=== PATIENT | female | born 1990 | race Caucasian/White ===

== ENCOUNTER 2017-03-15 07:55 | Observation (INO) | payer BC, MEDICAID, OTHER ==
[2017-03-15 07:56] VITALS: BMI 36.6
--- NOTE | 2017-03-15 08:30 | ED PDOC ---
Arrival/HPI - General Chief Complaint: Abdominal Pain Time Seen by Provider: 03/15/17 08:29 Historian: Patient - History of Present Illness Narrative History of Present Illness (Text): 03/15/17 08:30 A 27 year old female presents to the emergency department complaining of upper abdominal pain since 1 am this morning. Patient notes nausea and multiple episodes of non-bilious non-bloody vomiting. Patient denies any relieving or exacerbating factors. Patient denies any fever, chills, diarrhea, chest pain, shortness of breath or any other complaints. PMD: Dr. Frazier Time/Duration: Other (1 am today) Symptom Course: Unchanged Quality: Other Context: Home Past Medical History - Provider Review Nursing Documentation Reviewed: Yes - Infectious Disease Hx of Infectious Diseases: None - Tetanus Immunization Tetanus Immunization: Unknown - Reproductive Menopause: No - Past Medical History Past Medical History: No Previous - Cardiac Hx Cardiac Disorders: No - Pulmonary Hx Asthma: Yes Hx Pneumonia: Yes - Neurological Hx Neurological Disorder: No - HEENT Hx HEENT Disorder: No - Renal Hx Renal Disorder: No - Endocrine/Metabolic Hx Endocrine Disorders: No - Hematological/Oncological Hx Blood Disorders: No - Integumentary Hx Dermatological Disorder: No - Musculoskeletal/Rheumatological Hx Musculoskeletal Disorders: Yes (HAND INJURY,FINGER LACERATION) Hx Falls: No Hx Herniated Disk: Yes - Gastrointestinal Hx Gastrointestinal Disorders: No - Genitourinary/Gynecological Hx Genitourinary Disorders: No - Psychiatric Hx Depression: No Hx Substance Use: No - Past Surgical History Past Surgical History: No Previous - Anesthesia Hx Anesthesia: No - Suicidal Assessment Feels Threatened In Home Enviroment: No Family/Social History - Physician Review Nursing Documentation Reviewed: Yes Family/Social History: No Known Family HX Smoking Status: Current Some Days Smoker Hx Alcohol Use: Yes (SOCIALLY) Hx Substance Use: No Hx Substance Use Treatment: No Allergies/Home Meds Allergies/Adverse Reactions: Allergies apple Allergy (Verified 03/15/17 08:10) RASH Review of Systems - Physician Review All systems were reviewed & negative as marked: Yes - Review of Systems Constitutional: absent: Fevers, Night Sweats Respiratory: absent: SOB Cardiovascular: absent: Chest Pain Gastrointestinal: Abdominal Pain, Nausea, Vomiting. absent: Diarrhea Physical Exam - Physical Exam Narrative Physical Exam (Text): Constitutional: No acute distress. Head: Normocephalic. Atraumatic. Eyes: PERRL. ENT: Moist mucous membranes. Neck: Supple. Cardiovascular: Regular rate. Chest: No tenderness. Respiratory: Clear to auscultation bilaterally. GI: Soft. Nondistended. Epigastric tenderness. No rebound or guarding. Back: No CVA tenderness. Musculoskeletal: No tenderness or swelling of extremities. Skin: No rash. Neurologic: Alert, no focal deficit. Vital Signs Reviewed: Yes Vital Signs Temp Pulse Resp BP Pulse Ox 03/15/17 15:41 98.2 F 77 18 117/70 99 03/15/17 15:29 98.2 F 77 18 119/64 99 03/15/17 14:00 104 H 17 86/58 L 96 03/15/17 12:00 73 17 125/86 100 03/15/17 10:00 79 17 123/86 98 03/15/17 08:13 97.7 F 72 16 129/75 99 03/15/17 08:07 97.7 F 72 16 129/75 99 Temperature: Afebrile Blood Pressure: Normal Pulse: Regular Respiratory Rate: Normal Appearance: Positive for: Well-Appearing, Non-Toxic, Comfortable Pain Distress: None Mental Status: Positive for: Alert and Oriented X 3 Medical Decision Making ED Course and Treatment: 03/15/17 08:30 Impression: A 27 year old female with upper abdominal pain. Patient notes nausea and non- bilious non-bloody vomiting. Plan: -- Abdomen ultrasound -- Labs -- Urinalysis -- Maalox, Pepcid, Zofran and IV fluids -- Reassess and disposition - Lab Interpretations I have reviewed the lab results: Yes - Medication Orders Current Medication Orders: Discontinued Medications Al Hydrox/Mg Hydrox/Simethicone (Maalox Plus 30 Ml) 30 ml PO STAT STA Stop: 03/15/17 08:36 Last Admin: 03/15/17 08:48 Dose: 30 ml Famotidine (Pepcid) 20 mg IVP STAT STA Stop: 03/15/17 08:36 Last Admin: 03/15/17 08:48 Dose: 20 mg Famotidine (Pepcid) 20 mg IVP STAT STA Stop: 03/15/17 14:53 Last Admin: 03/15/17 15:11 Dose: 20 mg Sodium Chloride (Sodium Chloride 0.9%) 1,000 mls @ 999 mls/hr IV .Q1H1M STA Stop: 03/15/17 09:35 Last Admin: 03/15/17 08:48 Dose: 999 mls/hr Ondansetron HCl (Zofran Inj) 8 mg IVP STAT STA Stop: 03/15/17 08:36 Last Admin: 03/15/17 08:48 Dose: 8 mg Oxycodone/Acetaminophen (Percocet 5/325 Mg Tab) 1 tab PO STAT STA Stop: 03/15/17 10:59 Last Admin: 03/15/17 11:18 Dose: 1 tab Re-Assess: [facility] Pain Assessment Document 03/15/17 12:18 ALA (Rec: 03/15/17 14:11 ALA [id number]) Pain Reassessment Is this a pain reassessment? Yes ED OBSERVATION Discharge: Yes Date of observation admission: 03/15/17 Time of observation admission: 08:35 - Observation admission statement Patient is being placed in observation because:: Abdominal pain - Goals of Observation Goals of observation are:: Monitor and treat patients symptom - Progress Note Progress Note: 03/15/17 08:35 Patient with abdominal pain and non-bilious non-bloody vomiting. 03/15/17 10:35 Patient resting in no acute distress. No new complaints. 03/15/17 11:15 Abdominal ultrasound read and interpreted by me, which shows gallstones, no cholecystitis. Waiting for official read. Will administer Percocet for pain management, I discussed the risk of addiction. Recommended IV ibuprofen and percocet as needed. 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 Drug registry reviewed, patient only had one prescription for Vicodin 2 months ago from dentist. Report Date : 03/15/2017 11:53:18 Procedure: Abdomen Ultrasound Dictator : Rajat Kim MD IMPRESSION: Multiple gallstones. Dilated common bile duct 03/15/17 13:30 Patient sleeping comfortably, in no acute distress. 03/15/17 14:34 Patient appears well, ambulating in the emergency room without difficulty. 03/15/17 16:15 Patient with dilated common bile duct, normal liver enzymes and bilirubin. I advised the patient stay in the hospital for further testing of bile duct, but she decided to leave against medical advice and states she will f/u with Dr. Frazier tomorrow. - Scribe Statement The provider has reviewed the documentation as recorded by the Seymour Beebe Provider Nereydaibe Attestation: All medical record entries made by the Scribe were at my direction and personally dictated by me. I have reviewed the chart and agree that the record accurately reflects my personal performance of the history, physical exam, medical decision making, and the department course for this patient. I have also personally directed, reviewed, and agree with the discharge instructions and disposition. Disposition/Present on Arrival - Present on Arrival Any Indicators Present on Arrival: No History of DVT/PE: No History of Uncontrolled Diabetes: No Urinary Catheter: No History of Decub. Ulcer: No History Surgical Site Infection Following: None - Disposition Have Diagnosis and Disposition been Completed?: Yes Diagnosis: Gallstones, Common bile duct dilatation Disposition: AGAINST MEDICAL ADVICE Disposition Time: 08:35 Patient Plan: Discharge Patient Problems: Current Active Problems Problem Status Onset Common bile duct dilatation Acute Gallstones Acute Condition: FAIR Against Medical Advice - AMA Patient Left Against Medical Advice: The patient declines admission to the hospital and wishes to leave the Emergency Department. This action is against my medical advice. This decision was made with informed refusal. The patient was told that admission to the hospital is necessary. Explanation of the reasons why were discussed. The risks of leaving were explained to the patient and include, but are not limited to, worsening of known or currently unknown conditions, permanent disability and from undiagnosed or untreated conditions. The patient has the capacity to make this informed decision and understands my explanation of the current medical problem and risks of leaving. The patient voluntarily accepts these risks and signed an AMA form documenting our conversation. The patient was given the opportunity to ask questions and reconsider. The patient was encouraged to return to the Emergency Department at any time for further care.
[2017-03-15] MEDS ORDERED: Alum-Mag Hydrox-Simethicone Susp (30 mL) PO STA (08:35)
[2017-03-15] MEDS ORDERED: Sodium Chloride 0.9% 1,000 ML IV STA (08:35)
[2017-03-15 09:24] LABS: HEMOGLOBIN 11.4 gm/dL (12.0-16.0); LYMPH # 0.7 (1.2-3.4); LYMPH % 5.3 % (22.0-35.0); MEAN CELL VOLUME 81.6 fL (80.0-105.0); MEAN CORPUSCULAR HEMOGLOBIN 26.3 pg (25.0-35.0); MEAN CORPUSCULAR HGB CONC 32.2 g/dl (31.0-37.0); MEAN PLATELET VOLUME 11.6 fl (7.0-11.0); PLATELET COUNT 209 10^3/uL (120.0-450.0); RBC 4.34 10^6/uL (3.5-6.1); RED CELL DISTRIBUTION WIDTH 15.8 % (11.5-14.5); WHITE BLOOD COUNT 13.1 10^3/ul (4.5-11.0)
[2017-03-15 09:25] LABS: GRAN % 88.7 % (50.0-68.0); MONO # 0.6 (0.1-0.6); PH,URINE 8.5 (4.7-8.0); URINE BILIRUBIN NEGATIVE (NEGATIVE); URINE BLOOD LARGE (NEGATIVE); URINE GLUCOSE (UA) NEGATIVE (NEGATIVE); URINE LEUKOCYTE ESTERASE NEGATIVE Leu/uL (NEGATIVE); URINE NITRATE NEGATIVE (NEGATIVE); URINE PROTEIN 30 mg/dL (<30 mg/dL)
[2017-03-15 09:26] LABS: GRAN # 11.87 (1.4-6.5); HCG,QUALITATIVE URINE NEGATIVE (NEGATIVE)
[2017-03-15 09:27] LABS: URINE APPEARANCE CLEAR (CLEAR); URINE COLOR AMBER (YELLOW)
[2017-03-15 09:31] LABS: ALBUMIN 4.1 g/dL (3.0-4.8); ALT/SGPT 24 U/L (7-56); AST/SGOT 19 U/L (15-39); BLOOD UREA NITROGEN 9 mg/dL (7-21); GFR AFRICAN-AMERICAN > 60; GFR NON-AFRICAN AMERICAN > 60; LIPASE 26 U/L (23-300)
[2017-03-15 09:45] LABS: URINE BACTERIA TRACE (NEG); URINE RBC TNTC /hpf (0-2)
[2017-03-15] MEDS ORDERED: Oxycodone/Acetaminophen 5/325 mg Tab PO STA (10:58)
--- NOTE | 2017-03-15 11:54 | US ---
HISTORY: RUQ/epigastric pain COMPARISON: None. TECHNIQUE: Sonographic evaluation of the abdomen. FINDINGS: LIVER: Measures 15.06 x 13.53 cm. Increased echogenicity of the liver parenchyma. No mass. No intrahepatic bile duct dilatation. GALLBLADDER: Multiple gallstones. Gallbladder wall thickness 3 mm. No evidence of focal tenderness or surrounding fluid COMMON BILE DUCT: Measures 10-13 mm. No stones. PANCREAS: Unremarkable as visualized. No mass. No ductal dilatation. RIGHT KIDNEY: Measures 12.46 x 4.52 x 5.54cm. Normal echogenicity. No calculus, mass, or hydronephrosis. LEFT KIDNEY: Measures 11.29 x 5.73 x 5.33cm. Normal echogenicity. No calculus, mass, or hydronephrosis. SPLEEN: Normal in size and contour. No mass. AORTA: No aneurysmal dilatation. IVC: Unremarkable. OTHER FINDINGS: None. IMPRESSION: Multiple gallstones. Dilated common bile duct
[2017-03-15 15:30] VITALS: PULSE 77; RESP 18; TEMP 98.2; O2SAT 99
[2017-03-15 15:42] VITALS: BP 117/70
== END 2017-03-15 16:16 | disposition home or self-care (01) ==
LOC: ED 07:55 → EROBSV 08:35
PROVIDERS: ADMIT Student in an Organized Health Care Education/Training Program; ATTEND Student in an Organized Health Care Education/Training Program
DX: K80.20 Calculus of gallbladder without cholecystitis without obstruction (principal); K83.8 Other specified diseases of biliary tract
CPT/HCPCS: 76700; 80053; 81001; 83690; 84703; 85025; 96361; 96374; 96375; 96376; 99285; G0378; J2405; J7040